=== PATIENT | female | born 1985 | race Hispanic/Latino ===

== ENCOUNTER 2024-08-05 11:56 | Emergency (ER) | payer OTHER ==
[~2024-08-05] VITALS: Ht 157.5 cm; Wt 65.8 kg
[2024-08-05 12:18] VITALS: PULSE 84; RESP 16; TEMP 98.7; O2SAT 100
== END 2024-08-05 14:21 | disposition left against medical advice (07) ==
LOC: FSED 12:05
DX: R20.2 Paresthesia of skin (principal)
CPT/HCPCS: 81003; 81025